=== PATIENT | female | born 1945 | race Caucasian/White ===

== ENCOUNTER → 2017-10-19 | Outpatient (CLI) | payer MEDICARE ==
--- NOTE | 2017-10-27 08:31 | Diagnostic Imaging Report ---
#[id number] - [facility] #BILATERAL DIGITAL SCREENING MAMMOGRAM WITH CAD: 10/19/2017 CLINICAL: Routine screening. Comparison is made to exams dated: 09/04/2016 mammogram, 08/14/2015 mammogram and 08/08/2014 mammogram - [facility]. Current study contains 4 films. The tissue of both breasts is heterogeneously dense. This may lower the sensitivity of mammography. Current study was also evaluated with a Computer Aided Detection (CAD) system. There are benign calcifications in both breasts. There is a mole marker on the right breast. There are mole markers on the left breast. No significant masses, calcifications, or other findings are seen in either breast. There has been no significant interval change. IMPRESSION: BENIGN There is no mammographic evidence of malignancy. A 1 year screening mammogram is recommended. The patient will be notified by letter of the results. Ugo matias/keisha:10/26/2017 15:04:54 Transcribing Machine Mechanic: Vi MOORE(Brian)(M), [facility] letter sent: Compared to Prior B9 Mammogram BI-RADS: 2 Benign
== END ==
LOC: MAMMO 13:22
PROVIDERS: ATTEND Family Medicine
DX: Z12.31 Encounter for screening mammogram for malignant neoplasm of breast (principal)
CPT/HCPCS: 77067

== ENCOUNTER 2022-10-04 00:25 | Inpatient (IN) | payer MEDICARE, OTHER ==
[~2022-10-04] VITALS: Ht 165.1 cm; Wt 101.2 kg
[2022-10-04] VITALS (9 sets, daily range): BP systolic 127–145; BP diastolic 68–79
[2022-10-04] MEDS ORDERED: ONDANSETRON HCL INJ 2MG/ML 2ML 2 MG/ML VIAL IV STA (00:35)
[2022-10-04] MEDS ORDERED: Morphine 4mg INJECTION 4 MG/ML INJ IV ONE (00:45)
[2022-10-04] MEDS ORDERED: FENTANYL CITRATE/PF 100MCG/2 ML INJ ONE (03:25)
[2022-10-04] MEDS ORDERED: FENTANYL CITRATE/PF 100MCG/2 ML INJ IV ONE (03:25)
[2022-10-04 03:30] LABS: BASOPHILS # (AUTO) 0.1 (0.0-0.1); BASOPHILS % 0.5 % (0.0-1.0); EOSINOPHILS % 0.1 % (0.0-6.0); HEMATOCRIT 40.5 % (34.2-44.1); HEMOGLOBIN 12.5 g/dL (12.0-16.0); LYMPHOCYTES # (AUTO) 0.7 (1.0-3.2); LYMPHOCYTES % 4.6 % (18.0-39.1); MEAN CORPUSCULAR HGB CONC 30.9 g/dL (31-35); MEAN CORPUSCULAR VOLUME 90.8 fL (81-99); MONOCYTES # (AUTO) 0.9 (0.2-0.8); MONOCYTES % 5.6 % (4.4-11.3); NEUTROPHILS # (AUTO) 13.7 (2.1-6.9); NEUTROPHILS % 88.6 % (38.7-80.0); PLATELET COUNT 242 x10e3/uL (140-360); RED BLOOD COUNT 4.46 x10e6/uL (3.6-5.1); RED CELL DISTRIBUTION WIDTH 14.2 % (11.7-14.4)
[2022-10-04 03:49] LABS: ALBUMIN 3.7 g/dL (3.5-5.0); ALBUMIN/GLOBULIN RATIO 1.2 (0.8-2.0); ANION GAP 15.1 mmol/L (8-16); CALCIUM 9.4 mg/dL (8.4-10.2); CREATININE, SERUM 0.83 mg/dL (0.57-1.11); POTASSIUM 4.1 mmol/L (3.5-5.1)
[2022-10-04] MEDS: Morphine 4mg INJECTION 4 MG/ML INJ IV PRN ×2 (09:47→21:16)
[2022-10-04] MEDS ORDERED: JANUVIA100 MG PO (10:01)
[2022-10-04] MEDS ORDERED: TRICOR145 MG PO (10:07)
[2022-10-04] MEDS ORDERED: METFORMIN HCL500 MG PO (10:07)
[2022-10-04] MEDS ORDERED: GLIPIZIDE5 MG PO (10:07)
[2022-10-04] MEDS ORDERED: AMLODIPINE BESY10 MG PO (10:07)
[2022-10-04] MEDS ORDERED: GLIMEPIRIDE2 MG PO (10:07)
[2022-10-04] MEDS ORDERED: PIOGLITAZONE HC45 MG PO (10:07)
[2022-10-04] MEDS ORDERED: LOSARTAN POTAS100 MG PO (10:07)
[2022-10-04] MEDS ORDERED: ATORVASTATIN CA40 MG PO (10:07)
[2022-10-04] MEDS ORDERED: DEXTROSE 50% SYRINGE 50 ML IV PRN ×2 (10:45→13:30)
[2022-10-04] MEDS: SODIUM CHLORIDE 0.9% 1000ML 1,000 ML IV SCH (14:31)
[2022-10-04 16:40] LABS: CLARITY,URINE CLEAR (CLEAR); COLOR,URINE YELLOW (YELLOW)
[2022-10-04 16:41] LABS: KETONES,URINE NEGATIVE (NEGATIVE); LEUKOCYTE ESTERASE ,URINE NEGATIVE (NEGATIVE); NITRITE,URINE NEGATIVE (NEGATIVE); PROTEIN,URINE DIPSTICK NEGATIVE (NEGATIVE); URINE UROBILINOGEN 0.2 mg/dL (0.2 - 1)
[2022-10-04] MEDS: GLIMEPIRIDE 2 MG TAB PO SCH (16:55)
[2022-10-04] MEDS: GLIPIZIDE 5 MG TAB PO SCH (16:56)
[2022-10-04 17:02] LABS: BACTERIA,URINE FEW /HPF; EPITHELIAL CELLS,URINE FEW /LPF; MUCUS,URINE RARE (RARE); RBC,URINE 0-5 /HPF (0-5)
[2022-10-04] MEDS: ONDANSETRON HCL INJ 2MG/ML 2ML 2 MG/ML VIAL IV PRN (21:16)
[2022-10-04] MEDS: METOPROLOL SUCCINATE 25 MG TAB XL PO SCH (23:30)
[2022-10-05] VITALS (10 sets, daily range): BP systolic 109–147; BP diastolic 62–77
[2022-10-05] MEDS: SODIUM CHLORIDE 0.9% 1000ML 1,000 ML IV SCH ×2 (02:57→16:59)
[2022-10-05 07:01] LABS: BASOPHILS % 0.5 % (0.0-1.0); EOSINOPHILS # (AUTO) 0.1 (0.0-0.4); EOSINOPHILS % 1.1 % (0.0-6.0); HEMATOCRIT 38.3 % (34.2-44.1); HEMOGLOBIN 12.4 g/dL (12.0-16.0); LYMPHOCYTES # (AUTO) 0.9 (1.0-3.2); LYMPHOCYTES % 16.5 % (18.0-39.1); MEAN CORPUSCULAR HEMOGLOBIN 30.5 pg (28-32); MEAN CORPUSCULAR HGB CONC 32.4 g/dL (31-35); MEAN CORPUSCULAR VOLUME 94.3 fL (81-99); MONOCYTES # (AUTO) 0.6 (0.2-0.8); NEUTROPHILS % 70.5 % (38.7-80.0); PLATELET COUNT 171 x10e3/uL (140-360); RED BLOOD COUNT 4.06 x10e6/uL (3.6-5.1); RED CELL DISTRIBUTION WIDTH 16.1 % (11.7-14.4)
[2022-10-05 07:25] LABS: ALBUMIN 3.1 g/dL (3.5-5.0); ANION GAP 12.1 mmol/L (8-16); CALCIUM 8.9 mg/dL (8.4-10.2); CREATININE, SERUM 0.74 mg/dL (0.57-1.11); POTASSIUM 4.1 mmol/L (3.5-5.1)
[2022-10-05] MEDS: Morphine 4mg INJECTION 4 MG/ML INJ IV PRN ×2 (08:01→20:00)
[2022-10-05] MEDS: GLIMEPIRIDE 2 MG TAB PO SCH ×2 (08:08→16:56)
[2022-10-05] MEDS: GLIPIZIDE 5 MG TAB PO SCH ×2 (08:08→16:58)
[2022-10-05] MEDS: PIOGLITAZONE HCL 45 MG TAB PO SCH (08:09)
[2022-10-05] MEDS: AMLODIPINE BESYLATE 5 MG TAB PO SCH (08:09)
[2022-10-05] MEDS: SITAGLIPTIN 100 MG TAB PO SCH (08:09)
[2022-10-05] MEDS: METOPROLOL SUCCINATE 25 MG TAB XL PO SCH (08:10)
[2022-10-05] MEDS: FENOFIBRATE 145 MG TAB PO SCH (09:00)
[2022-10-05] MEDS ORDERED: AMLODIPINE BESYLATE 10 MG TAB PO SCH (09:00)
[2022-10-05] MEDS ORDERED: ENOXAPARIN 30 MG/0.3 ML SYR SC STA (12:46)
[2022-10-05] MEDS: ONDANSETRON HCL INJ 2MG/ML 2ML 2 MG/ML VIAL IV PRN (19:59)
[2022-10-06] VITALS (7 sets, daily range): BP systolic 110–137; BP diastolic 51–61
[2022-10-06] MEDS: SODIUM CHLORIDE 0.9% 1000ML 1,000 ML IV SCH (05:23)
[2022-10-06] MEDS: ONDANSETRON HCL INJ 2MG/ML 2ML 2 MG/ML VIAL IV PRN ×3 (06:05→17:21)
[2022-10-06] MEDS: Morphine 4mg INJECTION 4 MG/ML INJ IV PRN ×3 (06:06→17:22)
[2022-10-06] MEDS: GLIMEPIRIDE 2 MG TAB PO SCH ×2 (10:23→17:20)
[2022-10-06] MEDS: SITAGLIPTIN 100 MG TAB PO SCH (10:24)
[2022-10-06] MEDS: GLIPIZIDE 5 MG TAB PO SCH ×2 (10:24→17:21)
[2022-10-06] MEDS: PIOGLITAZONE HCL 45 MG TAB PO SCH (10:24)
[2022-10-06] MEDS: AMLODIPINE BESYLATE 5 MG TAB PO SCH (10:25)
[2022-10-06] MEDS: METOPROLOL SUCCINATE 25 MG TAB XL PO SCH (10:25)
[2022-10-06] MEDS: FENOFIBRATE 145 MG TAB PO SCH (10:32)
[2022-10-06] MEDS ORDERED: ENOXAPARIN SOD INJ 40 MG/0.4 ML SYR SC ONE (13:30)
[2022-10-06] MEDS ORDERED: LACTATED RINGER'S 500 ML IV SCH (18:45)
[2022-10-06] MEDS ORDERED: METOPROLOL TARTRATE INJ 1 MG/ML VIAL IV PRN (18:45)
[2022-10-06] MEDS ORDERED: FUROSEMIDE INJ 10 MG/ML 4 ML VIAL IV ONE (21:00)
[2022-10-07] VITALS (7 sets, daily range): BP systolic 111–149; BP diastolic 58–80
[2022-10-07] MEDS: SODIUM CHLORIDE 0.9% 1000ML 1,000 ML IV SCH ×2 (00:09→05:43)
[2022-10-07] MEDS: Morphine 4mg INJECTION 4 MG/ML INJ IV PRN ×2 (05:13→11:23)
[2022-10-07 05:46] LABS: BASOPHILS % 0.4 % (0.0-1.0); EOSINOPHILS % 0.3 % (0.0-6.0); HEMATOCRIT 37.7 % (34.2-44.1); HEMOGLOBIN 11.8 g/dL (12.0-16.0); LYMPHOCYTES # (AUTO) 0.7 (1.0-3.2); LYMPHOCYTES % 7.8 % (18.0-39.1); MEAN CORPUSCULAR HEMOGLOBIN 28.1 pg (28-32); MEAN CORPUSCULAR HGB CONC 31.3 g/dL (31-35); MEAN CORPUSCULAR VOLUME 89.8 fL (81-99); MONOCYTES # (AUTO) 0.9 (0.2-0.8); MONOCYTES % 9.6 % (4.4-11.3); NEUTROPHILS # (AUTO) 7.6 (2.1-6.9); NEUTROPHILS % 81.4 % (38.7-80.0); PLATELET COUNT 208 x10e3/uL (140-360); RED CELL DISTRIBUTION WIDTH 14.1 % (11.7-14.4)
[2022-10-07 06:15] LABS: ANION GAP 12.4 mmol/L (8-16); CALCIUM 8.6 mg/dL (8.4-10.2); CREATININE, SERUM 0.75 mg/dL (0.57-1.11); MAGNESIUM 1.7 MG/DL (1.3-2.1); PHOSPHORUS 2.6 MG/DL (2.3-4.7); POTASSIUM 3.4 mmol/L (3.5-5.1)
[2022-10-07] MEDS ORDERED: ENOXAPARIN SOD INJ 40 MG/0.4 ML SYR SC STA (07:36)
[2022-10-07] MEDS ORDERED: MAGNESIUM SULF 1GRAM/DEXTROSE 100 ML IV ONE (08:00)
[2022-10-07] MEDS ORDERED: ENOXAPARIN SOD INJ 40 MG/0.4 ML SYR SC ONE ×2 (08:00→13:00)
[2022-10-07 08:05] LABS: INR 1.03; PROTHROMBIN TIME 13.7 seconds (11.9-14.5)
[2022-10-07 08:06] LABS: PARTIAL THROMBOPLASTIN TIME 34.1 seconds (23.8-35.5)
[2022-10-07] MEDS: ENOXAPARIN SOD INJ 40 MG/0.4 ML SYR SC ONE ×2 (08:11→09:04)
[2022-10-07] MEDS ORDERED: POTASSIUM CHLORIDE 20MEQ/100ML 100 ML IV ONE (09:00)
[2022-10-07] MEDS: FENOFIBRATE 145 MG TAB PO SCH ×2 (09:00→12:29)
[2022-10-07] MEDS: METOPROLOL SUCCINATE 25 MG TAB XL PO SCH ×2 (09:00→12:28)
[2022-10-07] MEDS: AMLODIPINE BESYLATE 5 MG TAB PO SCH ×2 (09:00→12:27)
[2022-10-07] MEDS ORDERED: BISACODYL 10 MG SUPP PR PRN (10:15)
[2022-10-07] MEDS ORDERED: BISACODYL 10 MG SUPP PR ONE (10:30)
[2022-10-07] MEDS ORDERED: IOPAMIDOL 370 MG/ML 100 ML INFUS..BTL INJ ONE (11:32)
[2022-10-07] MEDS ORDERED: POTASSIUM CHLORIDE 20 MEQ TAB CR PO ONE (15:25)
[2022-10-07] MEDS: DOCUSATE SODIUM 100 MG CAP PO SCH ×2 (16:31→21:26)
[2022-10-07] MEDS ORDERED: POLYETHYLENE GLYCOL 3350 17 GM PACK PO SCH (17:00)
[2022-10-07] MEDS ORDERED: ENOXAPARIN SOD INJ 60 MG/0.6 ML SYR SC ONE (17:00)
[2022-10-07] MEDS: POLYETHYLENE GLYCOL 3350 17 GM PACK PO SCH (21:26)
[2022-10-07] MEDS: ENOXAPARIN SODIUM INJ 100 MG/ML SYR SC SCH (22:07)
[2022-10-08] VITALS (19 sets, daily range): BP systolic 109–160; BP diastolic 51–78
[2022-10-08] MEDS: Morphine 4mg INJECTION 4 MG/ML INJ IV PRN ×3 (03:16→21:22)
[2022-10-08 07:13] LABS: BASOPHILS % 0.6 % (0.0-1.0); EOSINOPHILS # (AUTO) 0.1 (0.0-0.4); EOSINOPHILS % 1.1 % (0.0-6.0); HEMATOCRIT 39.3 % (34.2-44.1); HEMOGLOBIN 12.1 g/dL (12.0-16.0); LYMPHOCYTES # (AUTO) 0.8 (1.0-3.2); LYMPHOCYTES % 13.3 % (18.0-39.1); MEAN CORPUSCULAR HEMOGLOBIN 27.8 pg (28-32); MEAN CORPUSCULAR HGB CONC 30.8 g/dL (31-35); MEAN CORPUSCULAR VOLUME 90.1 fL (81-99); MONOCYTES # (AUTO) 0.6 (0.2-0.8); MONOCYTES % 10.2 % (4.4-11.3); NEUTROPHILS # (AUTO) 4.6 (2.1-6.9); NEUTROPHILS % 74.5 % (38.7-80.0); PLATELET COUNT 212 x10e3/uL (140-360); RED BLOOD COUNT 4.36 x10e6/uL (3.6-5.1); RED CELL DISTRIBUTION WIDTH 14.1 % (11.7-14.4)
[2022-10-08 07:29] LABS: ANION GAP 11.1 mmol/L (8-16); CREATININE, SERUM 0.63 mg/dL (0.57-1.11); POTASSIUM 4.1 mmol/L (3.5-5.1)
[2022-10-08] MEDS: METOPROLOL SUCCINATE 25 MG TAB XL PO SCH (08:06)
[2022-10-08] MEDS: FENOFIBRATE 145 MG TAB PO SCH (08:06)
[2022-10-08] MEDS: POLYETHYLENE GLYCOL 3350 17 GM PACK PO SCH ×2 (08:06→21:21)
[2022-10-08] MEDS: ENOXAPARIN SODIUM INJ 100 MG/ML SYR SC SCH (08:06)
[2022-10-08] MEDS: AMLODIPINE BESYLATE 5 MG TAB PO SCH (08:06)
[2022-10-08] MEDS: DOCUSATE SODIUM 100 MG CAP PO SCH ×3 (08:06→21:21)
[2022-10-08] MEDS: HEPARIN 25,000 UNIT/D5W 250ML 250 ML IV SCH (09:40)
[2022-10-09] VITALS (11 sets, daily range): BP systolic 99–154; BP diastolic 57–84
[2022-10-09] MEDS: HEPARIN 25,000 UNIT/D5W 250ML 250 ML IV SCH (05:51)
[2022-10-09 06:43] LABS: BASOPHILS % 0.6 % (0.0-1.0); EOSINOPHILS # (AUTO) 0.1 (0.0-0.4); EOSINOPHILS % 2.1 % (0.0-6.0); HEMATOCRIT 35.9 % (34.2-44.1); HEMOGLOBIN 11.2 g/dL (12.0-16.0); LYMPHOCYTES # (AUTO) 0.8 (1.0-3.2); LYMPHOCYTES % 16.2 % (18.0-39.1); MEAN CORPUSCULAR HGB CONC 31.2 g/dL (31-35); MEAN CORPUSCULAR VOLUME 89.8 fL (81-99); MONOCYTES # (AUTO) 0.6 (0.2-0.8); MONOCYTES % 11.5 % (4.4-11.3); NEUTROPHILS # (AUTO) 3.5 (2.1-6.9); NEUTROPHILS % 68.6 % (38.7-80.0); PLATELET COUNT 236 x10e3/uL (140-360); RED CELL DISTRIBUTION WIDTH 13.9 % (11.7-14.4)
[2022-10-09 07:09] LABS: ALBUMIN 2.5 g/dL (3.5-5.0); ALBUMIN/GLOBULIN RATIO 0.7 (0.8-2.0); ANION GAP 13.9 mmol/L (8-16); CALCIUM 8.9 mg/dL (8.4-10.2); CREATININE, SERUM 0.64 mg/dL (0.57-1.11); POTASSIUM 3.9 mmol/L (3.5-5.1)
[2022-10-09] MEDS: DOCUSATE SODIUM 100 MG CAP PO SCH ×3 (08:19→20:50)
[2022-10-09] MEDS: AMLODIPINE BESYLATE 5 MG TAB PO SCH (08:20)
[2022-10-09] MEDS: POLYETHYLENE GLYCOL 3350 17 GM PACK PO SCH ×2 (08:20→20:50)
[2022-10-09] MEDS: METOPROLOL SUCCINATE 25 MG TAB XL PO SCH (08:20)
[2022-10-09] MEDS: FENOFIBRATE 145 MG TAB PO SCH (08:21)
[2022-10-09] MEDS: APIXABAN 5 MG TABLET PO SCH ×2 (10:15→20:50)
[2022-10-09] MEDS: ONDANSETRON HCL INJ 2MG/ML 2ML 2 MG/ML VIAL IV PRN ×2 (14:43→21:38)
[2022-10-09] MEDS: Morphine 4mg INJECTION 4 MG/ML INJ IV PRN ×2 (14:43→21:38)
[2022-10-10 01:00] VITALS: BP 120/57
[2022-10-10 04:50] VITALS: BP 136/68
[2022-10-10 08:17] VITALS: BP 149/70
[2022-10-10 08:59] VITALS: BP 149/70
[2022-10-10] MEDS: POLYETHYLENE GLYCOL 3350 17 GM PACK PO SCH (09:00)
[2022-10-10] MEDS: DOCUSATE SODIUM 100 MG CAP PO SCH ×2 (09:00→15:00)
[2022-10-10] MEDS: METOPROLOL SUCCINATE 25 MG TAB XL PO SCH (09:02)
[2022-10-10] MEDS: APIXABAN 5 MG TABLET PO SCH (09:02)
[2022-10-10] MEDS: AMLODIPINE BESYLATE 5 MG TAB PO SCH (09:03)
[2022-10-10] MEDS: FENOFIBRATE 145 MG TAB PO SCH (09:04)
[2022-10-10 10:36] VITALS: BP 150/70
[2022-10-10 16:38] VITALS: BP 142/78
[2022-10-10] MEDS ORDERED: ONDANSETRON HCL 4 MG ORAL DISINTEGRATING TAB PO PRN (19:15)
[2022-10-10] MEDS: Morphine 4mg INJECTION 4 MG/ML INJ IV PRN (19:39)
[2022-10-11] MEDS ORDERED: PANTOPRAZOLE SOD 40 MG TABEC PO SCH (07:30)
[2022-10-16] MEDS ORDERED: APIXABAN 5 MG TABLET PO SCH (09:00)
== END 2022-10-10 19:54 | DRG 562 ==
LOC: ER 00:29 → ERHOLD 00:58 → MED/SURG 07:58 → ICU 10-08 00:09 → MED/SURG2 10-09 13:41
PROVIDERS: ADMIT Internal Medicine; ATTEND Internal Medicine
PROC: 02HV33Z Insertion of Infusion Device into Superior Vena Cava, Percutaneous Approach (ICD-10-PCS; principal; 2022-10-08)
DX: S82.141A Displaced bicondylar fracture of right tibia, initial encounter for closed fracture (principal); I26.99 Other pulmonary embolism without acute cor pulmonale; S42.302A Unspecified fracture of shaft of humerus, left arm, initial encounter for closed fracture; J90 Pleural effusion, not elsewhere classified; W01.0XXA Fall on same level from slipping, tripping and stumbling without subsequent striking against object, initial encounter; E66.01 Morbid (severe) obesity due to excess calories; Z68.37 Body mass index [BMI] 37.0-37.9, adult; I10 Essential (primary) hypertension; E11.9 Type 2 diabetes mellitus without complications; Z79.899 Other long term (current) drug therapy; E11.69 Type 2 diabetes mellitus with other specified complication; E78.2 Mixed hyperlipidemia; Z96.641 Presence of right artificial hip joint; Z90.710 Acquired absence of both cervix and uterus; E87.6 Hypokalemia; E83.42 Hypomagnesemia; Z20.822 Contact with and (suspected) exposure to COVID-19
CPT/HCPCS: 36415; 36569; 71045; 71260; 80048; 80053; 81001; 82948; 83735; 83880; 84100; 85025; 85379; 85610; 85730; 86850; 86900; 87086; 93005; 93306; 93971; 94799; 96360; 99252; 99284; J0690; J1650; J1940; J2270; J2405; J3010; J3475; J3480; J7030; J7050; Q9967

== ENCOUNTER 2022-10-24 07:57 | Emergency (ER) | payer MEDICARE ==
[~2022-10-24] VITALS: Ht 317.5 cm; Wt 101.2 kg
[~2022-10-24 07:57] MED LIST: AMLODIPINE BESY10 MG PO; ATORVASTATIN CA40 MG PO; GLIMEPIRIDE2 MG PO; GLIPIZIDE5 MG PO; JANUVIA100 MG PO; LOSARTAN POTAS100 MG PO; METFORMIN HCL500 MG PO; PIOGLITAZONE HC45 MG PO; TRICOR145 MG PO
== END 2022-10-24 09:58 | disposition home or self-care (01) ==
LOC: ER 08:05
DX: S82.151A Displaced fracture of right tibial tuberosity, initial encounter for closed fracture (principal); I10 Essential (primary) hypertension; W18.39XA Other fall on same level, initial encounter; Y92.002 Bathroom of unspecified non-institutional (private) residence as the place of occurrence of the external cause; Z79.84 Long term (current) use of oral hypoglycemic drugs; Z79.899 Other long term (current) drug therapy; Z86.711 Personal history of pulmonary embolism
CPT/HCPCS: 99283

== ENCOUNTER → 2023-02-02 | Outpatient (CLI) | payer MEDICARE | LOC: DX 10:57 | PROVIDERS: ATTEND Family Medicine | DX: M85.88 Other specified disorders of bone density and structure, other site (principal) | CPT/HCPCS: 77080 ==

== ENCOUNTER → 2024-10-12 | Outpatient (REF) | payer MEDICARE | LOC: DX 13:39 | PROVIDERS: ATTEND Internal Medicine Endocrinology, Diabetes & Metabolism | DX: M85.88 Other specified disorders of bone density and structure, other site (principal); Z78.0 Asymptomatic menopausal state | CPT/HCPCS: 77080 ==